=== PATIENT | male | born 1970 | race Caucasian/White ===

== ENCOUNTER 2017-12-06 15:30 | Emergency (ER) | payer OTHER, SELFPAY ==
[2017-12-06 16:05] VITALS: BP 140/80; PULSE 90; RESP 20; TEMP 36.6; O2SAT 100; BMI 25.8
--- NOTE | 2017-12-06 16:15 | HMH.EDUTC ---
[facility] [place] Disposition Clinical Impression: URI (upper respiratory infection) Qualifiers: URI type: unspecified URI Qualified Code(s): J06.9 - Acute upper respiratory infection, unspecified Disposition: Home, Self-Care Condition on Discharge: Good Instructions: DI for Nasal Congestion, DI for Sinusitis, Sinusitis Additional Instructions: Follow up with family doctor Return if needed Take medication as prescribed Motrin or Tylenol as needed for fever or pain If symptoms worsen go straight to ER Prescriptions: Azithromycin [Z-Rudi 250mg Tab] 250 mg PO UD DOSE PK #6 tab Fluticasone Propionate [Flonase 50mcg nasal spray 16gm] 2 spr NS DAILY #1 bottle predniSONE [Prednisone 20mg Tab] 20 mg PO BID #10 tab Referrals: Everardo Noel MD [Primary Care Provider] - Forms: Work/School Release Time of Disposition: 16:28 Medical Decision Making - Medical Records Medical records reviewed: Yes: I reviewed the patient's medical records. Vital Signs: 12/06/17 16:05 Temperature 97.9 F Temperature Source Temporal Artery Scan Pulse Rate [Right] 90 Respiratory Rate 20 Blood Pressure [Right Arm] 140/80 Blood Pressure Mean [Right Arm] 100 Blood Pressure Source [Right Arm] Automatic Cuff Blood Pressure Position [Right Arm] Sitting 02 Sat by Pulse Oximetry 100 Oxygen Delivery Method Room Air - Danny Inquiry Pt receiving controlled substance: No Danny was queried for this patient: No [facility] [place] HPI - General Stated complaint: light headed,cough Mode of Arrival: Ambulatory Source of Information: Patient Limitations: No Limitations Description of Symptoms (Recalled from Triage Doc. by RN): LIGHTHEADEDNESS TODAY HEENT Symptoms (Recalled from RN notes): Yes Resp Symptoms (Recalled from RN notes): No Skin Symptoms (Recalled from RN notes): No MS Symptoms (Recalled from RN notes): No Functional Status (Recalled from RN notes): N - History of Present Illness Provider Complaint: Patient state that he has been having sinus pain and pressure States that he feels like his sinuses are backed up into his ears States that if he moves quickly he feels like the fluid moves and makes him feel light headed State that he felt like he was getting sick a couple weeks ago and then he felt better and now it is back and worse than it was - Related Data Previous Rx's Medication Instructions Recorded Azithromycin [Z-Rudi 250mg Tab] 250 mg PO UD DOSE PK #6 tab 12/06/17 Fluticasone Propionate [Flonase 2 spr NS DAILY #1 bottle 12/06/17 50mcg nasal spray 16gm] predniSONE [Prednisone 20mg 20 mg PO BID #10 tab 12/06/17 Tab] Allergies Allergy/AdvReac Type Severity Reaction Status Date / Time alcohol [ALCOHOL] Allergy Unknown I-HIVES Unverified 10/19/17 15:10 MILK (FOOD) Allergy Unknown NA-NAUSEA/V Uncoded 10/19/17 15:10 OMITING - Worker's Comp Is this a Worker's Comp case?: No H History I have reviewed the patient's past medical history: Yes - *Social History Smoking Status: Current every day smoker Tobacco Type: cigarettes Alcohol Intake: never - Psychiatric History Expresses thoughts of harming self/others: None Suicide Plan Description: No Plan ROS Obtained: Yes All systems reviewed & no additional complaints - Constitutional Constitutional: Reports body ache, Reports chills - ENT Ears, Nose, Mouth, and Throat: Reports sinus pain, Reports sinus pressure, Reports sore throat Physical Exam - General General appearance: alert, in no apparent distress - Expanded ENT Exam External ear exam: Present: other (Mild fluid noted left ear) Nose exam: Present: sinus tenderness, other (Tenderness noted maxillary sinus) Comment: Throat red, irritated drainage noted no exudate - Respiratory Respiratory exam: Present: normal lung sounds bilaterally. Absent: respiratory distress - Cardiovascular Cardiovascular exam: Present: regular rate, normal rhythm. Absent: JVD - Neurological Exam Neurological e
--- NOTE | 2017-12-06 16:23 | ED_ITS ---
[facility] [place] Impression: URI (upper respiratory infection) Qualifiers: URI type: unspecified URI Qualified Code(s): J06.9 - Acute upper respiratory infection, unspecified Disposition: Home, Self-Care Condition on Discharge: Good Instructions: DI for Nasal Congestion, DI for Sinusitis, Sinusitis Additional Instructions: Follow up with family doctor Return if needed Take medication as prescribed Motrin or Tylenol as needed for fever or pain If symptoms worsen go straight to ER Prescriptions: Azithromycin [Z-Rudi 250mg Tab] 250 mg PO UD DOSE PK #6 tab Fluticasone Propionate [Flonase 50mcg nasal spray 16gm] 2 spr NS DAILY #1 bottle predniSONE [Prednisone 20mg Tab] 20 mg PO BID #10 tab Referrals: Everardo Noel MD [Primary Care Provider] - Forms: Work/School Release Time of Disposition: 16:28 Medical Decision Making - Medical Records Medical records reviewed: Yes: I reviewed the patient's medical records. Vital Signs: 12/06/17 16:05 Temperature 97.9 F Temperature Source Temporal Artery Scan Pulse Rate [Right] 90 Respiratory Rate 20 Blood Pressure [Right Arm] 140/80 Blood Pressure Mean [Right Arm] 100 Blood Pressure Source [Right Arm] Automatic Cuff Blood Pressure Position [Right Arm] Sitting 02 Sat by Pulse Oximetry 100 Oxygen Delivery Method Room Air - Danny Inquiry Pt receiving controlled substance: No Danny was queried for this patient: No [facility] [place] - General Stated complaint: light headed,cough Mode of Arrival: Ambulatory Source of Information: Patient Limitations: No Limitations Description of Symptoms (Recalled from Triage Doc. by RN): LIGHTHEADEDNESS TODAY HEENT Symptoms (Recalled from RN notes): Yes Resp Symptoms (Recalled from RN notes): No Skin Symptoms (Recalled from RN notes): No MS Symptoms (Recalled from RN notes): No Functional Status (Recalled from RN notes): N - History of Present Illness Provider Complaint: Patient state that he has been having sinus pain and pressure States that he feels like his sinuses are backed up into his ears States that if he moves quickly he feels like the fluid moves and makes him feel light headed State that he felt like he was getting sick a couple weeks ago and then he felt better and now it is back and worse than it was - Related Data Previous Rx's Medication Instructions Recorded Azithromycin [Z-Rudi 250mg Tab] 250 mg PO UD DOSE PK #6 tab 12/06/17 Fluticasone Propionate [Flonase 2 spr NS DAILY #1 bottle 12/06/17 50mcg nasal spray 16gm] predniSONE [Prednisone 20mg 20 mg PO BID #10 tab 12/06/17 Tab] Allergies Allergy/AdvReac Type Severity Reaction Status Date / Time alcohol [ALCOHOL] Allergy Unknown I-HIVES Unverified 10/19/17 15:10 MILK (FOOD) Allergy Unknown NA-NAUSEA/V Uncoded 10/19/17 15:10 OMITING - Worker's Comp Is this a Worker's Comp case?: No H History I have reviewed the patient's past medical history: Yes - *Social History Smoking Status: Current every day smoker Tobacco Type: cigarettes Alcohol Intake: never - Psychiatric History Expresses thoughts of harming self/others: None Suicide Plan Description: No Plan ROS Obtained: Yes All systems reviewed & no additional complaints - Constitutional Constitutional: Reports body ache, Reports chills - ENT Ears
[2017-12-06 16:31] VITALS: BP 140/80; PULSE 90; RESP 20; TEMP 36.6
[2017-12-06 16:31] LABS: UTC Influenza A Antigen Negative (Negative); UTC Influenza B Antigen Negative (Negative)
== END 2017-12-06 16:33 | disposition home or self-care (01) ==
PROVIDERS: Emergency Provider Nurse Practitioner; Family Provider Emergency Medicine; PCP Emergency Medicine
DX: J06.9 Acute upper respiratory infection, unspecified (principal)
CPT/HCPCS: 87804; 99201

== ENCOUNTER 2017-12-14 09:10 | Emergency (ER) | payer OTHER, SELFPAY ==
[2017-12-14 09:21] VITALS: BP 122/79; PULSE 82; RESP 20; TEMP 37.1; O2SAT 99; BMI 25.8
--- NOTE | 2017-12-14 09:28 | HMH.EDUTC ---
[facility] [place] Disposition Clinical Impression: Encounter to obtain excuse from work Frontal sinusitis Qualifiers: Chronicity: acute Recurrence: not specified as recurrent Qualified Code(s): J01.10 - Acute frontal sinusitis, unspecified Disposition: Home, Self-Care Condition on Discharge: Good Instructions: DI for Sinusitis Additional Instructions: * Start Sudafed. * Restart Flonase 2 sprays each nostril daily to help with nasal congestion, sinus and ear pressure/inflammation. If you run out, it is available generic over the counter at [facility] * Prednisone twice a day until gone * sinus rinses 1-2 times a day * Lots of fluids * Sleep elevated * Humidifier/vaporizer Referrals: Everardo Noel MD [Primary Care Provider] - (If no improvement over the next 4-6 days or at any time new or worsening symptoms, follow up. If not improving, he might want to have you see Dr. Wheeler (ENT)) Forms: Work/School Release Time of Disposition: 09:40 Medical Decision Making Vital Signs: 12/14/17 09:21 Temperature 98.7 F Temperature Source Oral Pulse Rate [Right Brachial] 82 Respiratory Rate 20 Blood Pressure [Right Arm] 122/79 Blood Pressure Mean [Right Arm] 93 Blood Pressure Source [Right Arm] Automatic Cuff Blood Pressure Position [Right Arm] Sitting 02 Sat by Pulse Oximetry 99 Oxygen Delivery Method Room Air - Danny Inquiry Pt receiving controlled substance: No [facility] [place] HPI - General Stated complaint: lightheaded congested Time Seen by Provider: 12/14/17 09:15 Mode of Arrival: Family Vehicle Source of Information: Patient Limitations: No Limitations Description of Symptoms (Recalled from Triage Doc. by RN): pt states he his light headed with head congestion. HEENT Symptoms (Recalled from RN notes): Yes (light headed and sinus congestion) Resp Symptoms (Recalled from RN notes): No Skin Symptoms (Recalled from RN notes): No MS Symptoms (Recalled from RN notes): No Functional Status (Recalled from RN notes): na - History of Present Illness Provider Complaint: c/o continued sinus pressure. Started around 12/04/17. Was seen here 12/06/17 Dx URI. Rx flonase, zpack and prednisone. Initially reports he was out of the flonase but then reports he stopped using the flonase when nasal congestion resolved. Didn't read the directions on the prednisone. Reports he has 8-9 remaining. Hasn't taken or tried anything else for symptoms. Doesn't feel like he can work today due to head pressure and requesting work excuse. - Related Data Previous Rx's Medication Instructions Recorded Azithromycin [Z-Rudi 250mg Tab] 250 mg PO UD DOSE PK #6 tab 12/06/17 Fluticasone Propionate [Flonase 2 spr NS DAILY #1 bottle 12/06/17 50mcg nasal spray 16gm] predniSONE [Prednisone 20mg 20 mg PO BID #10 tab 12/06/17 Tab] Allergies Allergy/AdvReac Type Severity Reaction Status Date / Time alcohol [ALCOHOL] Allergy Unknown I-HIVES Verified 12/14/17 09:18 - Worker's Comp Is this a Worker's Comp case?: No [facility] History I have reviewed the patient's past medical history: Yes Medical History: Denies:: Cancer, Diabetes Mellitus Type 1, Diabetes Mellitus Type 2, Hypertension, MRSA Other Surgeries: Yes: No Previous Surgery Amputation: No Fractures: No - *Social History Smoking Status: Current every day smoker Tobacco Type: cigarettes Alcohol Intake: never - Psychiatric History Expresses thoughts of harming self/others: None Suicide Plan Description: No Plan ROS Obtained: Yes Systems reviewed as appropriate & no additional complaints - Constitutional Constitutional: Denies body ache, Denies chills, Denies fatigue, Denies fever(s), Denies poor appetite - Eyes Eyes: Denies change in vision, Denies eye discharge, Denies eye pain, Denies other (eye redness) - ENT Ears, Nose, Mouth, and Throat: Reports as per HPI, Denies difficulty swallowing, Denies otalgia, Denies nasal discharge, Reports pain with swallowing (at times, mostly at night), Christian
--- NOTE | 2017-12-14 09:32 | ED_ITS ---
[facility] [place] Clinical Impression: Encounter to obtain excuse from work Frontal sinusitis Qualifiers: Chronicity: acute Recurrence: not specified as recurrent Qualified Code(s): J01.10 - Acute frontal sinusitis, unspecified Disposition: Home, Self-Care Condition on Discharge: Good Instructions: DI for Sinusitis Additional Instructions: * Start Sudafed. * Restart Flonase 2 sprays each nostril daily to help with nasal congestion, sinus and ear pressure/inflammation. If you run out, it is available generic over the counter at [facility] * Prednisone twice a day until gone * sinus rinses 1-2 times a day * Lots of fluids * Sleep elevated * Humidifier/vaporizer Referrals: Everardo Noel MD [Primary Care Provider] - (If no improvement over the next 4-6 days or at any time new or worsening symptoms, follow up. If not improving, he might want to have you see Dr. Wheeler (ENT)) Forms: Work/School Release Time of Disposition: 09:40 Medical Decision Making Vital Signs: 12/14/17 09:21 Temperature 98.7 F Temperature Source Oral Pulse Rate [Right Brachial] 82 Respiratory Rate 20 Blood Pressure [Right Arm] 122/79 Blood Pressure Mean [Right Arm] 93 Blood Pressure Source [Right Arm] Automatic Cuff Blood Pressure Position [Right Arm] Sitting 02 Sat by Pulse Oximetry 99 Oxygen Delivery Method Room Air - Danny Inquiry Pt receiving controlled substance: No [facility] [place] - General Stated complaint: lightheaded congested Time Seen by Provider: 12/14/17 09:15 Mode of Arrival: Family Vehicle Source of Information: Patient Limitations: No Limitations Description of Symptoms (Recalled from Triage Doc. by RN): pt states he his light headed with head congestion. HEENT Symptoms (Recalled from RN notes): Yes (light headed and sinus congestion) Resp Symptoms (Recalled from RN notes): No Skin Symptoms (Recalled from RN notes): No MS Symptoms (Recalled from RN notes): No Functional Status (Recalled from RN notes): na - History of Present Illness Provider Complaint: c/o continued sinus pressure. Started around 12/04/17. Was seen here 12/06/17 Dx URI. Rx flonase, zpack and prednisone. Initially reports he was out of the flonase but then reports he stopped using the flonase when nasal congestion resolved. Didn't read the directions on the prednisone. Reports he has 8-9 remaining. Hasn't taken or tried anything else for symptoms. Doesn't feel like he can work today due to head pressure and requesting work excuse. - Related Data Previous Rx's Medication Instructions Recorded Azithromycin [Z-Rudi 250mg Tab] 250 mg PO UD DOSE PK #6 tab 12/06/17 Fluticasone Propionate [Flonase 2 spr NS DAILY #1 bottle 12/06/17 50mcg nasal spray 16gm] predniSONE [Prednisone 20mg 20 mg PO BID #10 tab 12/06/17 Tab] Allergies Allergy/AdvReac Type Severity Reaction Status Date / Time alcohol [ALCOHOL] Allergy Unknown I-HIVES Verified 12/14/17 09:18 - Worker's Comp Is this a Worker's Comp case?: No [facility] History I have reviewed the patient's past medical history: Yes Medical History: Denies:: Cancer, Diabetes Mellitus Type 1, Diabetes Mellitus Type 2, Hypertension, MRSA Other Surgeries: Yes: No Previous Surgery Amputation: No Fractures: No - *Social History Smoking Status: Current every day smoker Tobacco Type: cigarettes Alcohol Intake: never
[2017-12-14 09:41] VITALS: BP 125/86; PULSE 75; RESP 18; TEMP 37; O2SAT 98
== END 2017-12-14 09:46 | disposition home or self-care (01) ==
PROVIDERS: Emergency Provider Nurse Practitioner Family; Family Provider Emergency Medicine; PCP Emergency Medicine
DX: J01.10 Acute frontal sinusitis, unspecified (principal); F17.210 Nicotine dependence, cigarettes, uncomplicated
CPT/HCPCS: 99202

== ENCOUNTER 2021-02-18 16:43 | Emergency (ER) | payer OTHER, SELFPAY ==
[2021-02-18 16:52] VITALS: BP 136/87; PULSE 75; RESP 14; TEMP 35.9; O2SAT 100; BMI 23.2
--- NOTE | 2021-02-18 17:00 | HMH.EDUTC ---
[facility] [place]ression: Gastroenteritis Diarrhea Qualifiers: Diarrhea type: unspecified type Qualified Code(s): R19.7 - Diarrhea, unspecified Disposition: Home, Self-Care Condition on Discharge: Good Instructions: Diarrhea, DI for Viral Gastroenteritis -- Adult Additional Instructions: Drink plenty of fluids. Water or gatorade (or other electrolyte sports drinks) Take tylenol for fever. Take the zofran for nausea/vomiting Follow up with your regular doctor. GO TO THE ER FOR ANY WORSENING SYMPTOMS Prescriptions: Ondansetron [Zofran 4mg ODT] 4 mg PO Q8HP PRN #12 tab.rapdis PRN Reason: Nausea Transmission Status: Received by [id number] Referrals: Anthony Abdi APRN [Primary Care Provider] - Forms: Work/School Release Time of Disposition: 17:16 Medical Decision Making - Medical Records Medical records reviewed: No: I reviewed the patient's medical records. - Danny Inquiry Pt receiving controlled substance: No Vital Signs: 02/18/21 16:52 02/18/21 17:21 Temperature 96.7 F L 96.7 F L Temperature Source Tympanic Tympanic Pulse Rate 75 Pulse Rate [Right Brachial] 75 Respiratory Rate 14 14 Blood Pressure 136/87 Blood Pressure [Right Arm] 136/87 Blood Pressure Mean [Right Arm] 103 Blood Pressure Source Automatic Cuff Blood Pressure Source [Right Arm] Automatic Cuff Blood Pressure Position Sitting Blood Pressure Position [Right Arm] Sitting 02 Sat by Pulse Oximetry 100 Oxygen Delivery Method Room Air Room Air [facility] [place] - General Stated complaint: diarrhea Time Seen by Provider: 02/18/21 17:00 Mode of Arrival: Ambulatory Source of Information: Patient Limitations: No Limitations Description of Symptoms (Recalled from Triage Doc. by RN): Pt complains of upset stomach, cramps and diarrhea since wednesday HEENT Symptoms (Recalled from RN notes): No Resp Symptoms (Recalled from RN notes): No Skin Symptoms (Recalled from RN notes): No MS Symptoms (Recalled from RN notes): No Functional Status (Recalled from RN notes): wnl - History of Present Illness Provider Complaint: He states that he has had diarrhea for the past 4 days. At first he had n/v also, but that has stopped. He denies any abdominal pain other than some cramping at times. He denies any fever/chills. - Related Data Previous Rx's Medication Instructions Recorded peg 3350-electrolytes 236 240 ml PO Q10M #4000 ml 01/16/20 gram-22.74 gram-6.74 gram-5.86 gram solution Ondansetron [Zofran 4mg ODT] 4 mg PO Q8HP PRN #12 tab.rapdis 02/18/21 Allergies Allergy/AdvReac Type Severity Reaction Status Date / Time alcohol [ALCOHOL] Allergy Unknown I-HIVES Verified 01/16/20 09:19 - Worker's Comp Is this a Worker's Comp case?: No [facility] History - Hepatitis A Screen Drug use history?: No High risk sexual behaviors?: No History of sexually transmitted infection?: No Currently employed?: No Childcare worker?: No Do you have indoor plumbing?: Yes Do you have electricity?: Yes Attestation statement:: This patient has been screened for Hepatitis A risk factors. I have reviewed the patient's past medical history: Yes Medical History: Denies:: Cancer, Diabetes Mellitus Type 1, Diabetes Mellitus Type 2, Hypertension, MRSA Other Surgeries: Yes: No Previous Surgery Amputation: No Fractures: No - Social History Smoking Status: Current every day smoker Tobacco Type: cigarettes # Packs/Day (cigarettes): 1 Alcohol Intake: never Occupational Status: other ROS Obtained: Yes All systems reviewed & no additional complaints - Constitutional Constitutional: Denies chills, Denies fever(s) - ENT Ears, Nose, Mouth, and Throat: Denies dizziness, Denies otalgia, Denies sore throat - Cardiovascular Cardiovascular: Denies chest pain - Respiratory Respiratory: Denies chest congestion, Denies cough - Gastrointestinal Gastrointestingal: Reports: as per HPI - Genitourinary Ma
[2021-02-18 17:21] VITALS: BP 136/87; PULSE 75; RESP 14; TEMP 35.9; O2SAT 100
== END 2021-02-18 17:22 | disposition home or self-care (01) ==
PROVIDERS: Emergency Provider Nurse Practitioner Family; PCP Nurse Practitioner Family
DX: K52.9 Noninfective gastroenteritis and colitis, unspecified (principal)
CPT/HCPCS: 99202; G0463

== ENCOUNTER 2021-06-30 14:16 | Emergency (ER) | payer OTHER, SELFPAY ==
[2021-06-30 16:15] VITALS: BP 00/00; PULSE 0; RESP 0; TEMP -17.7; TEMP 0
== END 2021-06-30 16:17 | disposition left against medical advice (07) ==
PROVIDERS: Emergency Provider Nurse Practitioner; PCP Nurse Practitioner Family
DX: Z53.21 Procedure and treatment not carried out due to patient leaving prior to being seen by health care provider (principal)

== ENCOUNTER → 2021-07-01 21:52 | Outpatient (CLI) | payer OTHER, SELFPAY | PROVIDERS: Visit Provider Nurse Practitioner Family | DX: Z11.52 Encounter for screening for COVID-19 (principal) | CPT/HCPCS: U0003 ==

== ENCOUNTER 2022-01-14 15:07 | Emergency (ER) | payer OTHER, SELFPAY ==
[2022-01-14 15:08] VITALS: BP 155/87; PULSE 69; RESP 16; TEMP 36.6; O2SAT 97; BMI 22.3
--- NOTE | 2022-01-14 15:13 | HMH.EDGENADL ---
ED Disposition Clinical Impression: Spring's palsy Disposition: Home, Self-Care Condition on Discharge: Good Instructions: DI for Roann Palsy Additional Instructions: Prednisone and Valtrex as prescribed Artificial tears every hour while awake Ophthalmic ointment at night Eyelid should be taped shut at night if you are not able to close your eye Protective glasses or goggles to protect from sunshine and wind Follow-up with your primary care provider within 1 week. Prescriptions: predniSONE [Prednisone 20mg Tab] 60 mg PO DAILY #21 tab Transmission Status: [facility] Valacyclovir HCl [Valacyclovir] 1,000 mg PO TID #21 tab Transmission Status: [facility] Referrals: Provider,Referral, [Referring] - - Critical Care Critical Care Time: No Attestation: On 01/14/22, the high probability of a clinically significant, sudden or life threatening deterioration of the following system(s) required my full and direct attention, intervention and personal management. The time I documented below is in addition to time spent performing reported procedures but includes the following listed in this critical care notation. Medical Decision Making - Danny Inquiry Pt receiving controlled substance: No Vital Signs: 01/14/22 15:08 Temperature 97.9 F Temperature Source Oral Pulse Rate [Left Radial] 69 Respiratory Rate 16 Blood Pressure [Right Arm] 155/87 H Blood Pressure Mean [Right Arm] 109 Blood Pressure Source [Right Arm] Automatic Cuff Blood Pressure Position [Right Arm] Sitting 02 Sat by Pulse Oximetry 97 Oxygen Delivery Method Room Air - Lab Data Lab Results 01/14/22 15:35: WBC 7.1, RBC 4.48 L, Hgb 14.2, Hct 43.6, MCV 97.4 H, MCH 31.8 H, MCHC 32.6, RDW 13.5, Plt Count 289, MPV 7.5, Neut % (Auto) 46.4, Lymph % (Auto) 42.5, [place] % (Auto) 6.9, Eos % (Auto) 2.9, Baso % (Auto) 1.2, Neut # (Auto) 3.3, Lymph # (Auto) 3.0, [place] # (Auto) 0.5, Eos # (Auto) 0.2, Baso # (Auto) 0.1 01/14/22 15:35: Sodium 140, Potassium 4.4, Chloride 106, Carbon Dioxide 28, Anion Gap 10.4, BUN 10, Creatinine 0.70, Estimated Creat Clear 130, Estimated GFR 119, Est GFR ( Amer) 144, Glucose 94, Calcium 8.6, Total Bilirubin 0.3, AST 21, ALT 16, Alkaline Phosphatase 60, Total Protein 7.0, Albumin 4.3, Globulin 2.7, Albumin/Globulin Ratio 1.6 Result diagrams: 01/14/22 15:35 01/14/22 15:35 Orders (Tests/Meds): ED MEDICATIONS Discontinued Medications Generic Name Dose Route Start Last Admin Trade Name Freq PRN Reason Stop Dose Admin Methylprednisolone Sodium Succinate 125 mg 01/14/22 16:15 01/14/22 16:37 Methylprednisolone Sod Succ 125mg Vial IV 01/14/22 16:16 125 mg ONCE ONE Administration - CT Data CT Scan: Head Time Received: 16:[address] Reviewed: Yes: I have viewed the radiologist's interpretation Findings Narrative: Procedure(s): CT head/brain wo con Accession Number(s): [id number] cc: Everardo Noel MD; Louis Singh MD; Chavo Tenorio MD~ FINAL REPORT CLINICAL HISTORY: left face feels numb started yesterday FINDINGS: Axial images of the head were obtained without contrast. Coronal reformatted images were also obtained.This study was performed with techniques to keep radiation doses as low as reasonably achievable (ALARA). Individualized dose reduction techniques using automated exposure control or adjustment of mA and/or kV according to the patient's size were employed. There is no evidence of intracranial hemorrhage or mass. The ventricular size is within normal limits. There is no evidence of shift of the midline structures. No abnormal extra axial fluid collection is identified. There is a small retention cyst or polyp in the right maxillary sinus. No skull abnormality is seen on the bone window images. IMPRESSION: No acute intracranial abnormality. Reviewed, Interpreted and Dictated by Louis Singh III, MD Transcribed
--- NOTE | 2022-01-14 15:14 | PC.NURSE ---
ED MD at
--- NOTE | 2022-01-14 15:21 | CT_ITS ---
FINAL REPORT CLINICAL HISTORY: left face feels numb started yesterday FINDINGS: Axial images of the head were obtained without contrast. Coronal reformatted images were also obtained.This study was performed with techniques to keep radiation doses as low as reasonably achievable (ALARA). Individualized dose reduction techniques using automated exposure control or adjustment of mA and/or kV according to the patient's size were employed. There is no evidence of intracranial hemorrhage or mass. The ventricular size is within normal limits. There is no evidence of shift of the midline structures. No abnormal extra axial fluid collection is identified. There is a small retention cyst or polyp in the right maxillary sinus. No skull abnormality is seen on the bone window images. IMPRESSION: No acute intracranial abnormality. Reviewed, Interpreted and Dictated by Louis Singh III, MD Transcribed by Ricardo Peralta Authenticated by Louis Singh III, MD on 01/14/2022 03:57:13 PM [facility]
[2022-01-14 15:49] LABS: Basophils # 0.1 K/mm3 (0-0.2); Basophils % 1.2 % (0.1-2.0); Eosinophils # 0.2 K/mm3 (0.0-0.4); Eosinophils % 2.9 % (0.1-12.0); Hematocrit 43.6 % (42.0-52.0); Hemoglobin 14.2 g/dL (14.1-18.0); Lymphocytes % 42.5 % (10-50); Mean Corpuscular HGB Conc 32.6 g/dL (31.8-35.4); Mean Corpuscular Hemoglobin 31.8 pg (27.0-31.2); Mean Corpuscular Volume 97.4 fl (80-94); Mean Platelet Volume 7.5 fl (7.4-10.4); Monocytes # 0.5 K/mm3 (0.1-1.0); Monocytes % 6.9 % (1.7-9.3); Neutrophils # 3.3 K/mm3 (1.8-7.8); Neutrophils % 46.4 % (37.0-80.0); Platelet Count 289 K/mm3 (142-424); Red Blood Count 4.48 M/mm3 (4.60-6.20); Red Cell Distribution Width 13.5 % (11.5-17.5); White Blood Count 7.1 K/mm3 (4.8-10.8)
[2022-01-14 16:03] LABS: Chloride 106 mmol/L (98-107); Potassium 4.4 mmoL/L (3.5-5.1); Sodium 140 mmol/L (136-145)
[2022-01-14 16:05] LABS: Blood Urea Nitrogen 10 mg/dl (9-20); Creatinine Clearance Estimated 130 mL/min (50-200); Estimated Glomerular Filt Rate 119 ml/min (>60); GFR (African American) 144 ML/MIN (>60)
[2022-01-14 16:06] LABS: Alanine Aminotransferase 16 U/L (12-78); Albumin Level 4.3 g/dl (3.5-5.0); Albumin/Globulin Ratio 1.6 (1.1-1.8); Alkaline Phosphatase 60 U/L (38-126); Anion Gap 10.4 mEq/L (5-15); Aspartate Amino Transferase 21 U/L (17-59); Bilirubin,Total 0.3 mg/dl (0.2-1.3); Calcium 8.6 mg/dl (8.4-10.2); Carbon Dioxide 28 mmol/L (22.0-30.0); Globulin 2.7 g/dL (1.3-3.2); Glucose 94 mg/dl (74-100)
--- NOTE | 2022-01-14 16:09 | PC.NURSE ---
ED MD at for update on POC
[2022-01-14 17:29] VITALS: BP 147/78; PULSE 67; RESP 18; TEMP 36.6; O2SAT 97
== END 2022-01-14 17:30 | disposition home or self-care (01) ==
PROVIDERS: Emergency Provider Emergency Medicine; PCP Emergency Medicine
DX: G51.0 Bell's palsy (principal); F17.210 Nicotine dependence, cigarettes, uncomplicated
CPT/HCPCS: 70450; 80053; 85025; 96374; 99284

== ENCOUNTER 2022-05-26 20:41 | Emergency (ER) | payer OTHER, SELFPAY ==
[2022-05-26 20:55] VITALS: BP 132/60; PULSE 66; RESP 16; TEMP 36.9; O2SAT 99; BMI 20.9
--- NOTE | 2022-05-26 21:08 | CT_ITS ---
PROCEDURE INFORMATION: Exam: CT Lumbar Spine Without Contrast Exam date and time: 05/26/2022 9:36 PM Age: 51 years old Clinical indication: Low back pain TECHNIQUE: Imaging protocol: Computed tomography of the lumbar spine without contrast. Radiation optimization: All CT scans at this facility use at least one of these dose optimization techniques: automated exposure control; mA and/or kV adjustment per patient size (includes targeted exams where dose is matched to clinical indication); or iterative reconstruction. COMPARISON: CT ABDOMEN PELVIS W CON 12/21/2019 6:07 PM FINDINGS: Bones/joints: No acute fracture. Normal alignment. L1-L2: No significant disc protrusion. No severe spinal canal stenosis. No significant neural foraminal narrowing. L2-L3: No significant disc protrusion. No severe spinal canal stenosis. No significant neural foraminal narrowing. L3-L4: No significant disc protrusion. No severe spinal canal stenosis. No significant neural foraminal narrowing. L4-L5: Bulging annulus. No severe spinal canal stenosis. No significant neural foraminal narrowing. L5-S1: Bulging annulus. No severe spinal canal stenosis. No significant neural foraminal narrowing. Soft tissues: Left renal vascular calcifications. IMPRESSION: 1. No acute fractures or listhesis. 2. No evidence of severe canal or foraminal stenosis.
--- NOTE | 2022-05-26 21:08 | XR_ITS ---
PROCEDURE INFORMATION: Exam: XR Bilateral Hips Exam date and time: 05/26/2022 9:23 PM Age: 51 years old Clinical indication: Hip pain; Bilateral; Additional info: Pain hip/groin, nki TECHNIQUE: Imaging protocol: Radiologic exam of the bilateral hips. Views: 2 views of hips with pelvis when performed. COMPARISON: CT ABDOMEN PELVIS W CON 12/21/2019 6:07 PM FINDINGS: Bones/joints: Intact. No acute fractures or dislocations identified. There are no lytic or blastic lesions. Mild decrease in the hip joint spaces on a degenerative basis. Soft tissues: Unremarkable. IMPRESSION: 1. No acute fractures or dislocations. 2. Mild decrease in the hip joint spaces on a degenerative basis.
[2022-05-26 21:34] LABS: Basophils # 0.1 K/mm3 (0-0.2); Eosinophils # 0.3 K/mm3 (0.0-0.4); Eosinophils % 3.7 % (0.1-12.0); Hematocrit 41.4 % (42.0-52.0); Hemoglobin 13.9 g/dL (14.1-18.0); Lymphocytes # 3.1 K/mm3 (0.7-4.5); Lymphocytes % 33.5 % (10-50); Mean Corpuscular HGB Conc 33.7 g/dL (31.8-35.4); Mean Corpuscular Hemoglobin 32.1 pg (27.0-31.2); Mean Corpuscular Volume 95.4 fl (80-94); Monocytes # 0.7 K/mm3 (0.1-1.0); Monocytes % 7.7 % (1.7-9.3); Neutrophils % 54.1 % (37.0-80.0); Platelet Count 361 K/mm3 (142-424); Red Blood Count 4.33 M/mm3 (4.60-6.20); Red Cell Distribution Width 12.7 % (11.5-17.5); White Blood Count 9.2 K/mm3 (4.8-10.8)
[2022-05-26 21:37] LABS: Chloride 107 mmol/L (98-107); Potassium 3.5 mmoL/L (3.5-5.1); Sodium 142 mmol/L (136-145)
[2022-05-26 21:39] LABS: Blood Urea Nitrogen 11 mg/dl (9-20); Creatinine Clearance Estimated 118 mL/min (50-200); Estimated Glomerular Filt Rate 119 ml/min (>60); GFR (African American) 144 ML/MIN (>60)
[2022-05-26 21:40] LABS: Alanine Aminotransferase 15 U/L (12-78); Albumin/Globulin Ratio 1.3 (1.1-1.8); Alkaline Phosphatase 83 U/L (38-126); Anion Gap 9.5 mEq/L (5-15); Aspartate Amino Transferase 22 U/L (17-59); Bilirubin,Total 0.2 mg/dl (0.2-1.3); Calcium 9.1 mg/dl (8.4-10.2); Carbon Dioxide 29 mmol/L (22.0-30.0); Glucose 110 mg/dl (74-100)
[2022-05-26 21:46] LABS: C-Reactive Protein 10.1 mg/L (0-4)
[2022-05-26 22:05] LABS: Erythrocyte Sedimentation Rate 15 mm/hr (0-15)
[2022-05-26 22:06] VITALS: PULSE 123; RESP 16; TEMP 36.8; O2SAT 100
--- NOTE | 2022-05-26 22:07 | PC.NURSE ---
ALERT, ORIENTED, SKIN WARM AND DRY TO TOUCH, RESP EVEN AND UNLABORED. MEDICATED WITH TORADOL FOR PAIN. NO C/O VOICED AT THIS TIME.
--- NOTE | 2022-05-26 23:03 | HMH.EDGENADL ---
ED Disposition Clinical Impression: Tendonitis Disposition: Home, Self-Care Condition on Discharge: Good Instructions: DI for Tendinitis Additional Instructions: use meds and see pcp for follow up and possible mri Prescriptions: predniSONE [Prednisone 20mg Tab] 20 mg PO BID #10 tab Transmission Status: Pending to [id number] Referrals: Everardo Noel MD [Primary Care Provider] - - Critical Care Critical Care Time: No Attestation: On 05/26/22, the high probability of a clinically significant, sudden or life threatening deterioration of the following system(s) required my full and direct attention, intervention and personal management. The time I documented below is in addition to time spent performing reported procedures but includes the following listed in this critical care notation. Medical Decision Making - Medical Records Medical records reviewed: Yes: I reviewed the patient's medical records. - Danny Inquiry Pt receiving controlled substance: No Vital Signs: 05/26/22 20:55 05/26/22 22:06 Temperature 98.5 F 98.2 F Temperature Source Oral Oral Pulse Rate 123 H Pulse Rate [Right Brachial] 66 Respiratory Rate 16 16 Blood Pressure [Right Arm] 132/60 Blood Pressure Mean [Right Arm] 84 Blood Pressure Source [Right Arm] Automatic Cuff Blood Pressure Position [Right Arm] Sitting 02 Sat by Pulse Oximetry 99 100 Oxygen Delivery Method Room Air Room Air - Lab Data Lab results reviewed: Yes: I reviewed the patient's lab results. Lab Results 05/26/22 21:25: WBC 9.2, RBC 4.33 L, Hgb 13.9 L, Hct 41.4 L, MCV 95.4 H, MCH 32.1 H, MCHC 33.7, RDW 12.7, Plt Count 361, MPV 7.0 L, Neut % (Auto) 54.1, Lymph % (Auto) 33.5, [place] % (Auto) 7.7, Eos % (Auto) 3.7, Baso % (Auto) 1.0, Neut # (Auto) 5.0, Lymph # (Auto) 3.1, [place] # (Auto) 0.7, Eos # (Auto) 0.3, Baso # (Auto) 0.1 05/26/22 21:25: ESR 15 05/26/22 21:25: Sodium 142, Potassium 3.5, Chloride 107, Carbon Dioxide 29, Anion Gap 9.5, BUN 11, Creatinine 0.70, Estimated Creat Clear 118, Estimated GFR 119, Est GFR ( Amer) 144, Glucose 110 H, Calcium 9.1, Total Bilirubin 0.2, AST 22, ALT 15, Alkaline Phosphatase 83, C-Reactive Protein 10.1 H, Total Protein 7.0, Albumin 4.0, Globulin 3.0, Albumin/Globulin Ratio 1.3 05/26/22 21:25: Procalcitonin 0.040 Result diagrams: 05/26/22 21:25 05/26/22 21:25 Orders (Tests/Meds): ED MEDICATIONS Generic Name Dose Route Start Last Admin Trade Name Freq PRN Reason Stop Dose Admin Sodium Chloride 1,000 mls @ 999 mls/hr 05/26/22 21:15 05/26/22 21:25 Sod Chlor 0.9% 1000ml Bag IV 05/26/22 22:15 999 mls/hr .Q1H1M FRED Administration Discontinued Medications Generic Name Dose Route Start Last Admin Trade Name Freq PRN Reason Stop Dose Admin Iopamidol 75 ml 05/26/22 23:21 05/26/22 23:22 Iopamidol-370 (76%);100ml Bottle IV 05/26/22 23:22 75 ml ONCE ONE Administration Ketorolac Tromethamine 30 mg 05/26/22 22:02 05/26/22 22:03 Ketorolac 30mg/Ml Vial IV 05/26/22 22:03 30 mg ONCE ONE Administration Methylprednisolone Sodium Succinate 125 mg 05/26/22 21:12 05/26/22 21:25 Methylprednisolone Sod Succ 125mg Vial IV 05/26/22 21:13 125 mg ONCE ONE Administration Sodium Chloride 10 ml 05/26/22 23:21 05/26/22 23:22 Sodium Chloride 0.9% 10ml Syr (Rad Only) IV 05/26/22 23:22 10 ml ONCE ONE Administration - Radiology Data #1 Image(s): Pelvis Image Reviewed: Yes I have reviewed radiologist's interpretation Preliminary Findings: No Fracture Seen - CT Data CT Scan: Abdomen, Pelvis, L-Spine Time Received: 23:59 Medical Decision Narrative: has tendon prob injury based on ct and exam General Adult HPI - General Chief complaint: PAIN Stated complaint: HIP PAIN Time Seen by Provider: 05/26/22 23:03 Mode of Arrival: Ambulatory Source of Information: Patient, Medical Record Limitations: No Limitations Description of Symptoms (Recalled fr
--- NOTE | 2022-05-26 23:05 | CT_ITS ---
PROCEDURE INFORMATION: Exam: CT Abdomen And Pelvis With Contrast Exam date and time: 05/26/2022 11:11 PM Age: 51 years old Clinical indication: Pain; Other: Inguinal; Additional info: Inguinal pain TECHNIQUE: Imaging protocol: Computed tomography of the abdomen and pelvis with contrast. Radiation optimization: All CT scans at this facility use at least one of these dose optimization techniques: automated exposure control; mA and/or kV adjustment per patient size (includes targeted exams where dose is matched to clinical indication); or iterative reconstruction. Contrast material: ISOVUE; Contrast volume: 75 ml; Contrast route: IV; COMPARISON: CT ABDOMEN PELVIS W CON 12/21/2019 6:07 PM FINDINGS: Lungs: Lung bases are free of consolidation effusions pneumothorax or pulmonary nodules. Liver: The liver is of normal size with no evidence of intrahepatic biliary dilatation or focal lesions. Gallbladder and bile ducts: There is no evidence of cholelithiasis gallbladder wall thickening or pericholecystic fluid. No ductal dilation identified. Pancreas: No focal lesions, inflammatory changes or ductal dilatation. Spleen: Intact with no focal lesions. No splenomegaly. Adrenal glands: Normal. No mass. Kidneys and ureters: No hydronephrosis or nephrolithiasis. 2 cm simple cyst in the right kidney, benign. No follow-up necessary. Stomach and bowel: Unremarkable. No obstruction. No mucosal thickening. Appendix: No evidence of appendicitis. Intraperitoneal space: Unremarkable. No free air. No significant fluid collection. Vasculature: Unremarkable. No abdominal aortic aneurysm. Lymph nodes: Unremarkable. No enlarged lymph nodes. Urinary bladder: Unremarkable as visualized. Reproductive: Unremarkable as visualized. Bones/joints: Unremarkable. No acute fracture. Soft tissues: Area of enlargement and hypodensity within the right psoas tendon measuring 5 cm in length by 2 cm in with, compatible with edema. IMPRESSION: 1. Area of enlargement and hypodensity within the right Psoas Tendon measuring 5 cm in length by 2 cm in width, compatible with edema, suggestive of tendinous injury. Clinical correlation with the patient's site of pain. Non emergent MRI could be considered for further evaluation if clinically warranted. 2. No acute abnormalities of the abdominal or pelvic viscera. COMMENTS: Consistent with the [employer]'s Incidental Findings Committee white paper (J Am Gibson Radiol 2018): Any incidental renal lesion less than 1 cm or classified as too small to characterize, or any incidental cystic renal lesion characterized as simple-appearing, is likely benign. No follow-up imaging is recommended for these lesions per consensus recommendations based on imaging criteria.
[2022-05-27 00:03] VITALS: BP 123/72; PULSE 78; RESP 16; TEMP 37.1; O2SAT 98
== END 2022-05-27 00:07 | disposition home or self-care (01) ==
PROVIDERS: Emergency Provider Emergency Medicine; PCP Emergency Medicine
DX: M76.9 Unspecified enthesopathy, lower limb, excluding foot (principal); F17.210 Nicotine dependence, cigarettes, uncomplicated; Z79.52 Long term (current) use of systemic steroids; Z82.49 Family history of ischemic heart disease and other diseases of the circulatory system; Z83.3 Family history of diabetes mellitus; Z80.9 Family history of malignant neoplasm, unspecified
CPT/HCPCS: 72131; 73521; 74177; 80053; 84145; 85025; 85651; 86140; 96361; 96374; 96375; 99285; Q9967

== ENCOUNTER → 2022-08-21 10:35 | Outpatient (CLI) | payer OTHER, SELFPAY ==
[2022-08-21 11:43] LABS: Erythrocyte Sedimentation Rate 1 mm/hr (0-15)
[2022-08-21 11:45] LABS: Basophils # 0.1 K/mm3 (0-0.2); Basophils % 1.3 % (0.1-2.0); Eosinophils # 0.3 K/mm3 (0.0-0.4); Eosinophils % 3.5 % (0.1-12.0); Hematocrit 46.2 % (42.0-52.0); Lymphocytes # 3.3 K/mm3 (0.7-4.5); Lymphocytes % 40.2 % (10-50); Mean Corpuscular HGB Conc 32.4 g/dL (31.8-35.4); Mean Corpuscular Hemoglobin 31.9 pg (27.0-31.2); Mean Corpuscular Volume 98.6 fl (80-94); Mean Platelet Volume 7.6 fl (7.4-10.4); Monocytes # 0.7 K/mm3 (0.1-1.0); Monocytes % 8.7 % (1.7-9.3); Neutrophils # 3.8 K/mm3 (1.8-7.8); Neutrophils % 46.3 % (37.0-80.0); Platelet Count 342 K/mm3 (142-424); Red Blood Count 4.69 M/mm3 (4.60-6.20); Red Cell Distribution Width 13.8 % (11.5-17.5); White Blood Count 8.2 K/mm3 (4.8-10.8)
[2022-08-21 11:55] LABS: Chloride 103 mmol/L (98-107); Sodium 142 mmol/L (136-145)
[2022-08-21 11:56] LABS: Potassium 4.1 mmoL/L (3.5-5.1)
[2022-08-21 11:59] LABS: Anion Gap 13.1 mEq/L (5-15); Blood Urea Nitrogen 12 mg/dl (9-20); Carbon Dioxide 30 mmol/L (22.0-30.0); Chol/HDL Ratio 4.5 (1-3.5); Cholesterol 198 mg/dl (140-200); Estimated Glomerular Filt Rate 119 ml/min (>60); GFR (African American) 144 ML/MIN (>60); Glucose 123 mg/dl (74-100); HDL Cholesterol 44 mg/dl (40-60); Triglycerides 203 mg/dl (30-150); VLDL Cholesterol 41 mg/dL (0-40)
[2022-08-21 12:04] LABS: C-Reactive Protein 1.9 mg/L (0-4)
[2022-08-21 12:10] LABS: Direct LDL Cholesterol 123.69 mg/dL (100-129)
[2022-08-25 16:38] LABS: Antinuclear Antibodies, IFA Negative (.)
== END ==
PROVIDERS: PCP Emergency Medicine; Visit Provider Family Medicine Addiction Medicine
DX: H46.9 Unspecified optic neuritis (principal)
CPT/HCPCS: 36415; 80048; 80061; 85025; 85651; 86038; 86140

== ENCOUNTER → 2022-08-26 08:40 | Outpatient (CLI) | payer OTHER, SELFPAY ==
--- NOTE | 2022-08-26 08:49 | MR_ITS ---
FINAL REPORT CLINICAL HISTORY: OPTIC NERVE EDEMA. 3 weeks ago. loss of vision out of right eye. dizziness. 14ml prohance. FINDINGS: Multiplanar MR imaging of the brain was performed without and with contrast. There is no evidence of intracranial hemorrhage or mass. There is a single small focus of increased signal in the left frontal white matter which is nonspecific, may represent mild chronic ischemic/gliotic change but a focus of demyelination is not excluded. No abnormal extra-axial fluid collection is seen. The ventricular size is within normal limits. There is no evidence of shift of the midline structures. The posterior fossa and brainstem have an unremarkable appearance. No area of abnormal restricted diffusion is identified. No abnormal contrast enhancement is seen. Normal major vessel vascular flow voids are noted. IMPRESSION: Single focus of increased signal in the left frontal white matter, may represent mild chronic ischemic/gliotic change but a focus of demyelination is not excluded. Reviewed, Interpreted and Dictated by Louis Singh III, MD Transcribed by Ernestine Munoz Authenticated and . [facility]
--- NOTE | 2022-08-26 09:03 | XR_ITS ---
FINAL REPORT CLINICAL HISTORY: RULE OUT METAL FOREIGN BODY FOR MRI. PATIENT HAS PRIOR HX WELDING [address] DONE 12/2021 AND ARTIFACT SEEN OVER LEFT EYE. COMPARISON: CT dated December 2021 FINDINGS: ORBITS Look up and look down views were obtained. No fracture is identified. The sinuses are clear. Wall there is a punctate 1 mm radiodensity in the left supraorbital region. This is external to the orbit and localizes in the left upper eyelid on the prior CT. Small foreign body versus calcification. IMPRESSION: No intraorbital foreign body. Reviewed, Interpreted and Dictated by Louis Singh III, MD Transcribed by Ricardo Peralta Authenticated and . [facility]
== END ==
PROVIDERS: PCP Emergency Medicine; Visit Provider Family Medicine Addiction Medicine
DX: H46.9 Unspecified optic neuritis (principal); H05.53 Retained (old) foreign body following penetrating wound of bilateral orbits
CPT/HCPCS: 70200; 70553; A9576

== ENCOUNTER → 2022-09-03 12:37 | Outpatient (CLI) | payer OTHER, SELFPAY ==
--- NOTE | 2022-09-03 12:38 | CA_ITS ---
FINAL REPORT TECHNIQUE: Color Doppler, duplex Doppler and matos scale sonography of the bilateral neck arterial vasculature was performed. Velocities were measured in the carotid arteries. Stenosis evaluation based on the validated velocity criteria. 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 Hx-stroke, Smoker FINDINGS: The peak systolic velocity of the right common carotid artery is 106 cm/s. The peak systolic velocity of the right internal carotid artery is 100 cm/s and end diastolic velocity 43 cm/s. The ICA/CCA ratio is 0.94. A mild amount of plaque is present. The right external carotid artery is patent. The right vertebral artery is patent with antegrade flow. The peak systolic velocity of the left common carotid artery is 91 cm/s. The peak systolic velocity of the left internal carotid artery is 87 cm/s and end diastolic velocity 39 cm/s. The ICA/CCA ratio is 0.96. A mild amount of plaque is present. The left external carotid artery is patent.The left vertebral artery is patent with antegrade flow. In addition, an incidental note is made of a 2.6 cm solid isoechoic right thyroid mass, TI-RADS 3. IMPRESSION: Less than 50% bilateral carotid stenosis. Bilateral patent vertebral arteries with antegrade flow. 2.6 cm right thyroid mass as above. Consider ultrasound-guided biopsy of this dominant lesion. Reviewed, Interpreted and Dictated by Louis Singh III, MD Transcribed by Maggie Palma Authenticated and [facility]
== END ==
PROVIDERS: PCP Emergency Medicine; Visit Provider Emergency Medicine
DX: G51.0 Bell's palsy (principal); H54.7 Unspecified visual loss
CPT/HCPCS: 93880

== ENCOUNTER → 2022-09-21 08:24 | Outpatient (CLI) | payer OTHER, SELFPAY ==
--- NOTE | 2022-09-21 08:24 | US_ITS ---
FINAL REPORT CLINICAL HISTORY: mass on RT thyroid, fna rt thyroid, richa ABEBE FINDINGS: ULTRASOUND GUIDED RIGHT THYROID BIOPSY HISTORY: Right thyroid nodule/mass. TECHNIQUE: Informed consent was obtained from the patient. Timeout procedure was performed prior to beginning. Limited sonographic evaluation of thyroid gland was performed to localize lesion of interest in the right thyroid. The neck was prepped in a routine sterile fashion and locally anesthetized with 1% lidocaine. FNA was performed with 25-gauge needle under direct sonographic visualization. 4 passes were made. Cytology is pending. Procedure was well tolerated. CONCLUSION: 1. Technically successful right thyroid fine needle aspiration. Reviewed, Interpreted and Dictated by Louis Singh III, MD Transcribed by Jory Benitez PA-C Authenticated and [facility]
--- NOTE | 2022-09-21 08:24 | US_ITS ---
FINAL REPORT TECHNIQUE: Ultrasound images of the thyroid were obtained. CLINICAL HISTORY: Mass on right Thyroid FINDINGS: The right lobe of the thyroid measures 4.98 cm. It is normal in echogenicity. The left lobe of the thyroid measures 4.56 cm. It is normal in echogenicity. There is a 2.4 cm solid, right thyroid lobe mass. IMPRESSION: 2.4 cm, solid right thyroid lobe mass. Reviewed, Interpreted and Dictated by Louis Singh III, MD Transcribed by Jenae Herring Authenticated and [facility]
== END ==
PROVIDERS: PCP Emergency Medicine; Visit Provider Emergency Medicine
DX: E04.1 Nontoxic single thyroid nodule (principal); E07.9 Disorder of thyroid, unspecified
CPT/HCPCS: 10005; 76536; 76942

== ENCOUNTER 2023-05-30 22:34 | Emergency (ER) | payer OTHER, SELFPAY ==
[2023-05-30 22:41] VITALS: BP 140/86; PULSE 82; RESP 18; O2SAT 98; BMI 22.9
--- NOTE | 2023-05-30 22:54 | ED_ITS ---
Discharge Plan Disposition Chief Complaint: PAIN Prescriptions Prescriptions: No Action peg 3350-electrolytes [Golytely] 236-22.74-6.74 -5.86 gram recon soln 240 ml PO Q10M Qty: 240 0RF Rx Instructions: until fecal effluent is clear-follow mailed instructions Referrals Follow up/Referrals: Everardo Noel MD [Primary Care Provider] - See instructions Discharge ED Provider: Nidhi Villanueva General Adult HPI General Chief complaint: PAIN Stated complaint: AO 05/27@home injure L Shoulder Mode of Arrival: Family Vehicle Source of Information: Patient Limitations: No Limitations Description of Symptoms (Recalled from ER Triage Doc. by RN): 52 YO MALE PRESENTS WITH CC OF LEFT ANTERIOR CHEST WALL PAIN FOLLOWING LIFTING ON A ZERO- TURN MOWER 2 DAYS AGO. STATES HE KNOWS HOW TO LIFT ON THEM BECAUSE I WORK ON THEM ALL THE TIME, AND I KNOW I DID IT WRONG . HAS ATTEMPTED TO USE HEAT/ICE/MENTHOLATED RUB/OTC MEDS WITHOUT RELIEF. Related Data Previous Rx's Medication Instructions Recorded peg 3350-electrolytes 236 240 ml PO Q10M #240 mL 09/03/22 gram-22.74 gram-6.74 gram-5.86 gram solution (Golytely) Allergies Allergy/AdvReac Type Severity Reaction Status Date / Time alcohol [ALCOHOL] Allergy Unknown I-HIVES Verified 08/28/22 08:43 [facility] Disclaimer: The information contained in this section may have been updated after the patient was seen, as this information can be updated by other users. Medical History (Updated 09/03/22 @ 12:34 by Elen Holliday RN) Hx of Spring's palsy Family History (Updated 09/03/22 @ 12:34 by Elen Holliday RN) Other Family history of cancer Family history of myocardial infarction Family history of stroke Social History (Updated 09/03/22 @ 12:34 by Elen Holliday RN) Smoking Status: Current every day smoker tobacco type: cigarettes packs per day: 1 alcohol intake: never substance use type: denies use current occupational status: employed Travel in the last 8 weeks: None housing: house lives independently: Yes marital status: single special jabier needs: No agree to transfusion: No do you feel safe at home: Yes victim of physical abuse: No victim of emotional abuse: No victim of sexual abuse: No would you like helpful sources: No Medical Decision Making Vital Signs: 05/30/23 22:41 Pulse Rate [Right Brachial] 82 Respiratory Rate 18 Blood Pressure [Right Arm] 140/86 Blood Pressure Mean [Right Arm] 104 Blood Pressure Source [Right Arm] Automatic Cuff Blood Pressure Position [Right Arm] Sitting 02 Sat by Pulse Oximetry 98 Oxygen Delivery Method Room Air Critical Care Time Critical Care Time Attestation: On 05/30/23, the high probability of a clinically significant, sudden or life threatening deterioration of the following system(s) required my full and direct attention, intervention and personal management. The time I documented below is in addition to time spent performing reported procedures but includes the following listed in this critical care notation.
--- NOTE | 2023-05-30 23:02 | HMH.EDGENADL ---
Discharge Plan Disposition Patient Disposition: Home, Self-Care Condition: Good Prescriptions Prescriptions: New methocarbamol 500 mg tablet 1,000 mg PO Q6H PRN (Reason: pain) Qty: 45 0RF lidocaine 5 % adhesive patch,medicated 1 patch topical DAILY PRN (Reason: pain) Qty: 15 0RF Rx Instructions: leave on most painful area for up to 12 hrs No Action peg 3350-electrolytes [Golytely] 236-22.74-6.74 -5.86 gram recon soln 240 ml PO Q10M Qty: 240 0RF Rx Instructions: until fecal effluent is clear-follow mailed instructions Referrals Follow up/Referrals: Everardo Noel MD [Primary Care Provider] - See instructions Activity Restrictions/Add. Instructions Additional Instructions/Restrictions: Recommend activity restriction as much as possible to promote healing. Please take Robaxin as needed. Please use lidocaine patches as needed. Please continue to take Tylenol and ibuprofen. Clinical Impressions Clinical Impression: Strain of left pectoralis muscle Discharge ED Provider: Nidhi Villanueva General Adult HPI General Chief complaint: PAIN Stated complaint: AO 05/27@home injure L Shoulder Time Seen by Provider: 05/30/23 22:55 Mode of Arrival: Family Vehicle Source of Information: Patient Limitations: No Limitations Description of Symptoms (Recalled from ER Triage Doc. by RN): 52 YO MALE PRESENTS WITH CC OF LEFT ANTERIOR CHEST WALL PAIN FOLLOWING LIFTING ON A ZERO-TURN MOWER 2 DAYS AGO. STATES HE KNOWS HOW TO LIFT ON THEM BECAUSE I WORK ON THEM ALL THE TIME, AND I KNOW I DID IT WRONG . HAS ATTEMPTED TO USE HEAT/ICE/MENTHOLATED RUB/OTC MEDS WITHOUT RELIEF. History of Present Illness HPI narrative: 52-year-old female presents with left pectoral pain a couple of days after lifting a lawnmower. He reports that he initially did not have pain but about an hour later noted pain and the next morning had more significant pain. Reports pain is localized to the left pec muscle, it is reproducible on exam with palpation. Patient reports no pain in the shoulder, no pain in the back, neck. Reports no numbness tingling. Has tried Tylenol and ibuprofen and IcyHot at home without relief of pain. Related Data Previous Rx's Medication Instructions Recorded peg 3350-electrolytes 236 240 ml PO Q10M #240 mL 11/03/22 gram-22.74 gram-6.74 gram-5.86 gram solution (Golytely) lidocaine 5 % topical patch 1 patch topical DAILY PRN pain #15 05/30/23 ea methocarbamol 500 mg tablet 1,000 mg PO Q6H PRN pain #45 tabs 05/30/23 Allergies Allergy/AdvReac Type Severity Reaction Status Date / Time alcohol [ALCOHOL] Allergy Unknown I-HIVES Verified 08/28/22 08:43 [facility] Disclaimer: The information contained in this section may have been updated after the patient was seen, as this information can be updated by other users. Medical History (Updated 05/30/23 @ 23:12 by Brayden Esquivel MD) Hx of Spring's palsy Family History (Updated 09/03/22 @ 12:34 by Elen Holliday RN) Other Family history of cancer Family history of myocardial infarction Family history of stroke Social History (Updated 09/03/22 @ 12:34 by Elen Holliday RN) Smoking Status: Current every day smoker tobacco type: cigarettes packs per day: 1 alcohol intake: never substance use type: denies use current occupational status: employed Travel in the last 8 weeks: None housing: house lives independently: Yes marital status: single special jabier needs: No agree to transfusion: No do you feel safe at home: Yes victim of physical abuse: No victim of emotional abuse: No victim of sexual abuse: No would you like helpful sources: No ROS Obtained: Yes All systems reviewed & no additional complaints except as documented Physical Exam General General appearance: alert and in no apparent distress Head Head exam: atraumatic and normocephalic Eye Eye exam: Present normal appearance, PERRL and EOMI
[2023-05-30 23:19] VITALS: BP 128/81; PULSE 80; RESP 16; TEMP 36.7
== END 2023-05-30 23:32 | disposition home or self-care (01) ==
PROVIDERS: Emergency Provider Student in an Organized Health Care Education/Training Program; PCP Emergency Medicine
DX: S29.011A Strain of muscle and tendon of front wall of thorax, initial encounter (principal); F17.210 Nicotine dependence, cigarettes, uncomplicated; X50.0XXA Overexertion from strenuous movement or load, initial encounter
CPT/HCPCS: 99282; 99283

== ENCOUNTER 2024-04-18 18:00 | Outpatient (CLI) | payer OTHER, SELFPAY ==
[2024-04-18 19:26] LABS: Basophils # 0.1 K/mm3 (0-0.2); Basophils % 1.1 % (0.1-2.0); Eosinophils # 0.3 K/mm3 (0.0-0.4); Eosinophils % 3.5 % (0.1-12.0); Hematocrit 47.7 % (42.0-52.0); Hemoglobin 15.7 g/dL (14.1-18.0); Lymphocytes # 2.8 K/mm3 (0.7-4.5); Lymphocytes % 36.9 % (10-50); Mean Corpuscular HGB Conc 32.8 g/dL (31.8-35.4); Mean Corpuscular Hemoglobin 33.1 pg (27.0-31.2); Mean Corpuscular Volume 100.9 fl (80-94); Mean Platelet Volume 8.8 fl (7.4-10.4); Monocytes # 0.6 K/mm3 (0.1-1.0); Monocytes % 7.4 % (1.7-9.3); Neutrophils # 3.9 K/mm3 (1.8-7.8); Platelet Count 304 K/mm3 (142-424); Red Blood Count 4.73 M/mm3 (4.60-6.20); Red Cell Distribution Width 13.7 % (11.5-17.5); White Blood Count 7.6 K/mm3 (4.8-10.8)
[2024-04-18 19:34] LABS: Alanine Aminotransferase 20 U/L (12-78); Albumin Level 4.1 g/dl (3.5-5.0); Albumin/Globulin Ratio 1.5 (1.1-1.8); Alkaline Phosphatase 67 U/L (38-126); Anion Gap 12.7 mEq/L (5-15); Aspartate Amino Transferase 25 U/L (17-59); Bilirubin,Total 0.4 mg/dl (0.2-1.3); Blood Urea Nitrogen 8 mg/dl (9-20); Calcium 9.2 mg/dl (8.4-10.2); Carbon Dioxide 28 mmol/L (22.0-30.0); Chloride 103 mmol/L (98-107); Chol/HDL Ratio 4.9 (1-3.5); Cholesterol 229 mg/dl (140-200); Estimated Glomerular Filt Rate 102 ml/min (>60); GFR (African American) 123 ML/MIN (>60); Globulin 2.8 g/dL (1.3-3.2); Glucose 156 mg/dl (74-100); HDL Cholesterol 47 mg/dl (40-60); Potassium 3.7 mmoL/L (3.5-5.1); Sodium 140 mmol/L (136-145); Total Protein,Serum 6.9 g/dl (6.3-8.2); Triglycerides 138 mg/dl (30-150); VLDL Cholesterol 28 mg/dL (0-40)
[2024-04-18 19:45] LABS: Direct LDL Cholesterol 143.98 mg/dL (100-129)
[2024-04-18 19:49] LABS: 25-OH Vitamin D, Total 38.2 ng/mL (30-100)
[2024-04-18 20:08] LABS: Prostate Specific Ag Screen 1.2 ng/ml (0.0-4.0); Thyroid Stimulating Hormone 2.11 uIU/mL (0.465-4.68)
[2024-04-18 20:27] LABS: Vitamin B12 229 pg/mL (239-931)
[2024-04-24 11:40] LABS: Free Testosterone (Direct) 4.8 pg/mL (7.2-24.0); Testosterone, Total, LC/MS 541.5 ng/dL (264.0-916.0)
== END 2024-04-18 23:59 | disposition home or self-care (01) ==
LOC: LAB.DROPOF 04-19 09:58
PROVIDERS: PCP Nurse Practitioner Family; Visit Provider Nurse Practitioner Family
DX: R53.83 Other fatigue (principal); G51.0 Bell's palsy; Z00.00 Encounter for general adult medical examination without abnormal findings
CPT/HCPCS: 84402; 84403; 80050; 80053; 80061; 82306; 82607; 83036; 84443; 85025; G0103

== ENCOUNTER 2024-05-23 05:40 | Emergency (ER) | payer SELFPAY ==
[2024-05-23 05:42] VITALS: BP 164/89; PULSE 67; RESP 16; TEMP 36.6; O2SAT 98; BMI 24.3
--- NOTE | 2024-05-23 05:44 | HMH.EDGENADL ---
Discharge Plan Disposition Patient Disposition: Home, Self-Care Referrals Follow up/Referrals: Anthony Abdi APRN [Primary Care Provider] - See instructions Activity Restrictions/Add. Instructions Additional Instructions/Restrictions: Please follow-up with your primary care provider. Please return to the emergency department if you develop any new or worsening symptoms or become concerned for your health. Please keep it elevated if you can. Please take Tylenol ibuprofen as needed. Please use ice as needed. Clinical Impressions Clinical Impression: Bursitis Qualifiers: Bursitis location: knee Laterality: right Print Language Print Language: Albanian Discharge ED Provider: Brayden Esquivel General Adult HPI General Chief complaint: PAIN Stated complaint: AO 05/21/241909 right knee pain Time Seen by Provider: 05/23/24 05:43 History of Present Illness HPI narrative: 53-year-old male presents for right knee pain. He reports that he fell at work a couple days ago and it felt better for a little while but it now feels worse again. Denies any other injury. Denies any other pain. Reports he can still bear weight and walk but it hurts more to bend it. Pain is primarily over the kneecap. Related Data Allergies Allergy/AdvReac Type Severity Reaction Status Date / Time alcohol [ALCOHOL] Allergy Unknown I-HIVES Verified 04/18/24 09:25 [facility] Disclaimer: The information contained in this section may have been updated after the patient was seen, as this information can be updated by other users. Medical History Hx of Spring's palsy Family History Other Family history of cancer Family history of myocardial infarction Family history of stroke Social History Smoking Status: Current every day smoker tobacco type: cigarettes packs per day: 1 alcohol intake: never substance use type: denies use current occupational status: employed Travel in the last 8 weeks: None housing: house lives independently: Yes marital status: single special jabier needs: No agree to transfusion: No do you feel safe at home: Yes victim of physical abuse: No victim of emotional abuse: No victim of sexual abuse: No would you like helpful sources: No ROS Obtained: Yes All systems reviewed & no additional complaints except as documented Physical Exam General General appearance: alert and in no apparent distress Head Head exam: atraumatic and normocephalic Eye Eye exam: Present normal appearance, PERRL and EOMI ENT ENT exam: Present normal oropharynx and normal external ear exam Neck Neck exam: Present normal inspection and full ROM Chest Chest inspection: Present normal inspection and symmetric chest wall rise; Absent tenderness Respiratory Respiratory exam: Present normal lung sounds bilaterally; Absent respiratory distress Cardiovascular Cardiovascular exam: Present regular rate and normal rhythm Abdominal Exam Abdominal exam: Present soft; Absent distention, tenderness or guarding Extremities Exam Extremities exam: Present other (Tenderness palpation of the right patella with mild swelling noted around the prepatellar bursa, normal range of motion, normal strength and sensation, no joint instability noted) Back Exam Back exam: Present normal inspection; Absent tenderness Neurological Exam Neurological exam: Present alert and oriented X3; Absent motor sensory deficit Psychiatric Psychiatric exam: Present normal affect and normal mood Skin Skin exam: Present warm, dry and normal color Lymphatic Lymphatic Findings: no adenopathy Medical Decision Making Medical Records Medical records reviewed: Yes I reviewed the patient's medical records. Danny Inquiry Pt receiving controlled substance: No Danny was queried for this patient: No Vital Signs: 05/23/24 05:42 05/23/24 06:50 Temperature 97.8 F 97.8 F Temperature Source Oral Oral Pulse Rate 66 Pulse Rate [Left] 67 Respiratory Rate 16 18 Blood Pressure 121/81 Blood Pressure [Right Arm] 164/89 H Blood Pressure Mean [Right Arm] 114 02 Sat by Pulse Oximetry 98 Oxygen Delivery Method Room Air Room Air Lab Data Lab results reviewed: Yes I reviewed the patient's lab results. Orders (Tests/Meds): ORDERS Category Date Time Status XR knee RT 4V Stat Exams 05/23/24 05:54 Completed Medical Decision Narrative: 53-year-old male presents with right knee pain a couple days after landing on his knee at work. Differential diagnosis includes but not limited to fracture, dislocation, bursitis, internal derangement of the knee. Radiographs of the right knee were obtained and interpreted by me and showed no evidence of acute fracture dislocation or patellar injury. These findings were medicated with patient. He was discharged in stable condition and instructed to follow-up with PCP. Procedures Risk/Benefits of Procedure(s) Were Explained: Yes Critical Care Critical Care Time Critical Care Time: No
--- NOTE | 2024-05-23 05:52 | PC.NURSE ---
Dr. Esquivel at bedside
--- NOTE | 2024-05-23 05:54 | XR_ITS ---
PROCEDURE INFORMATION: Exam: XR Right Knee Exam date and time: 05/23/2024 6:03 AM Age: 53 years old Clinical indication: Pain; Knee; Right TECHNIQUE: Imaging protocol: Radiologic exam of the right knee. Views: 4 or more views. COMPARISON: No relevant prior studies available. FINDINGS: Bones/joints: Mild-moderate degenerative changes of the medial knee compartment with joint space narrowing, subchondral sclerosis and marginal spurring. There are less pronounced degenerative change lateral compartment. There is a small enthesophyte arising from the superior pole of patella. There is some joint space narrowing and subchondral sclerosis along the lateral aspect of the patellofemoral joint. No evidence of fracture, dislocation or malalignment. Soft tissues: Unremarkable. 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
--- NOTE | 2024-05-23 06:13 | PC.NURSE ---
patient to radiology
[2024-05-23 06:50] VITALS: BP 121/81; PULSE 66; RESP 18; TEMP 36.6; O2SAT 98
== END 2024-05-23 06:54 | disposition home or self-care (01) ==
PROVIDERS: Emergency Provider Emergency Medicine; PCP Nurse Practitioner Family
DX: M70.51 Other bursitis of knee, right knee (principal); M25.561 Pain in right knee; F17.210 Nicotine dependence, cigarettes, uncomplicated; W19.XXXA Unspecified fall, initial encounter
CPT/HCPCS: 73564; 99283

== ENCOUNTER 2025-02-27 20:53 | Emergency (ER) | payer OTHER, SELFPAY ==
--- NOTE | 2025-02-27 21:04 | ED_ITS ---
Discharge Plan Disposition Patient Disposition: Home, Self-Care Prescriptions Prescriptions: New methocarbamol 750 mg tablet 1,500 mg PO TID Qty: 90 0RF magnesium oxide 400 mg magnesium tablet 400 mg PO DAILY Qty: 30 0RF Referrals Follow up/Referrals: Anthony Abdi APRN [Primary Care Provider] - See instructions Activity Restrictions/Add. Instructions Additional Instructions/Restrictions: Take Tylenol and ibuprofen as needed for pain. Take Robaxin as needed for muscle relaxation. You may also take magnesium supplement that may help with your leg cramps. Follow-up with primary care doctor. Please return to emergency department with any new, concerning, or worsening symptoms. Clinical Impressions Clinical Impression: Cramp in lower leg Print Language Print Language: American Discharge ED Provider: Nasim Gallegos General Adult HPI <MIS Sheppard - Last Filed: 02/27/25 21:15> General Chief complaint: Extremity Injury, Lower Stated complaint: Right leg from hip to foot cramping all the time Time Seen by Provider: 02/27/25 20:56 History of Present Illness HPI narrative: Patient presents for evaluation of right lower extremity muscle cramps. Patient states that he has been having right lower extremity muscle cramps of significant frequency for 7 days. Patient has a past medical history of previous stroke with no residual deficits currently however he had to spend 6 months and rehab. Patient reports that he is currently on no home meds. Last provider notes I have were from April 2024 and he was diagnosed with Spring's palsy which may be his stroke symptoms. His MRI from the same year did not reveal any areas of acute infarct. In any event patient has had limited interaction with the healthcare system and currently denies chest pain shortness of breath fever chills hemoptysis hematochezia melena nausea vomiting diarrhea focal neurologic deficit or motor or sensory loss. Related Data Previous Rx's ?Medication ?Instructions ?Recorded magnesium oxide 400 mg PO DAILY #30 tabs 02/27/25 methocarbamol 750 mg tablet 1,500 mg (2 x 750 mg) PO TID #90 02/27/25 tabs Allergies Allergy/AdvReac Type Severity Reaction Status Date / Time alcohol (ALCOHOL) Allergy Unknown I-HIVES Verified 04/18/24 09:25 [facility] <MIS Sheppard - Last Filed: 02/27/25 21:15> [facility] Disclaimer: The information contained in this section may have been updated after the patient was seen, as this information can be updated by other users. Medical History Hx of Spring's palsy Family History Other Family history of cancer Family history of myocardial infarction Family history of stroke Social History Smoking Status: Current every day smoker tobacco type: cigarettes packs per day: 1 alcohol intake: never substance use type: denies use current occupational status: employed Travel in the last 8 weeks?: None housing: house lives independently: Yes marital status: single special jabier needs: No agree to transfusion: No do you feel safe at home: Yes victim of physical abuse: No victim of emotional abuse: No victim of sexual abuse: No would you like helpful sources: No Have you lived/traveled outside [place] in past 30 days?: No Contact w/someone who lives/traveled outside [place] past 30 days?: No Exposure to someone with infectious disease in past 14 days?: No Do you have a fever (greater than 100.4 F or 38 C)?: No Have you tested positive for COVID-19?: No Exposed to someone with COVID-19 in past 14 days?: No Do you have a sore throat?: No Do you have a cough?: No Do you have any weakness?: No Do you have any diarrhea?: No Are you experiencing any unusual bleeding?: No Do you have any muscle aches/pain?: No Do you have any abdominal pain?: No Are you experiencing loss of taste or smell?: No Other Medical History Have you received the Flu Vaccine for this season: No Have you received the Pneumonia Vaccine: No <MIS Sheppard - Last Filed: 02/27/25 21:15> ROS Obtained: Yes Systems reviewed as appropriate & no additional complaints except as documented Physical Exam <MIS Sheppard - Last Filed: 02/27/25 21:15> General General appearance: alert and in no apparent distress Respiratory Respiratory exam: Present normal lung sounds bilaterally Cardiovascular Cardiovascular exam: Present regular rate Neurological Exam Neurological exam: Present alert and oriented X3 Medical Decision Making <MIS Sheppard - Last Filed: 02/27/25 21:15> Medical Records Medical records reviewed: Yes I reviewed the patient's medical records. Screening: Per USPSTF and CDC recommendations, given the prevalence of disease in our region, it is our hospital?s policy to screen for HIV and viral Hepatitis for all patients aged 18 and over and those with ongoing risk factors. Danny Inquiry Pt receiving controlled substance: No Vital Signs: 02/27/25 21:28 02/27/25 21:30 02/27/25 21:45 Temperature 98.1 F Temperature Source Oral Pulse Rate 80 79 Pulse Rate [Right] 84 Respiratory Rate 20 Blood Pressure 131/82 117/77 Blood Pressure [Right Arm] 131/80 Blood Pressure Mean [Right Arm] 97 02 Sat by Pulse Oximetry 99 98 97 Oxygen Delivery Method Room Air 02/27/25 22:00 Temperature Temperature Source Pulse Rate 72 Pulse Rate [Right] Respiratory Rate Blood Pressure 126/79 Blood Pressure [Right Arm] Blood Pressure Mean [Right Arm] 02 Sat by Pulse Oximetry 99 Oxygen Delivery Method Lab Data Lab results reviewed: Yes I reviewed the patient's lab results. Lab Results 02/27/25 21:47: WBC 9.7, RBC 4.44 L, Hgb 14.4, Hct 42.2, MCV 95.0 H, MCH 32.4 H, MCHC 34.1, RDW 13.1, Plt Count 315, MPV 9.0, Neut % (Auto) 56.9, Lymph % (Auto) 32.4, [place] % (Auto) 8.0, Eos % (Auto) 2.1, Baso % (Auto) 0.5, Neut # (Auto) 5.5, Lymph # (Auto) 3.1, [place] # (Auto) 0.8, Eos # (Auto) 0.2, Baso # (Auto) 0.1, Sodium 137, Potassium 4.0, Chloride 105, Carbon Dioxide 30, Anion Gap 6.0, BUN 8 L, Creatinine 0.70, Estimated Creat Clear 127, Estimated GFR 118, Est GFR ( Amer) 143, Glucose 163 H, Calcium 9.4, Magnesium 1.9, Total Bilirubin 0.4, AST 21, ALT 14, Alkaline Phosphatase 57, Total Creatine Kinase 73, Total Protein 7.1, Albumin 4.2, Globulin 2.9, Albumin/Globulin Ratio 1.4 02/27/25 21:47 02/27/25 21:47 Orders (Tests/Meds): ED MEDICATIONS Discontinued Medications Generic Name Dose Route Start Last Admin Trade Name Pili PRN Reason Stop Dose Admin Acetaminophen 1,000 mg 02/27/25 20:59 02/27/25 21:58 Acetaminophen 500mg Tab PO 02/27/25 21:00 Not Given ONCE ONE Ketorolac Tromethamine 15 mg 02/27/25 20:59 02/27/25 21:58 Ketorolac 30mg/Ml Vial IV 02/27/25 21:00 Not Given ONCE ONE Methocarbamol 1,500 mg 02/27/25 21:39 02/27/25 21:58 Methocarbamol 500mg Tablet PO 02/27/25 21:40 Not Given ONCE ONE ORDERS Category Date Time Status CBC w/Auto Diff [Complete Blood Count Auto Diff] Stat Lab 02/27/25 21:47 Completed CK [Creatine Kinase] Stat Lab 02/27/25 21:47 Completed CMP [Comprehensive Metabolic Panel] Stat Lab 02/27/25 21:47 Completed Magnesium Stat Lab 02/27/25 21:47 Completed Medical Decision Narrative: In summary patient is a 54-year-old male who presents to the emergency department for evaluation of right lower extremity muscle cramps for 7 days. Patient is hemodynamically stable upon arrival, afebrile. Physical exam is remarkable for no focal neurologic deficits. Patient moves all 4 extremities has normal gait and station NIH stroke score 0. He is awake alert and oriented person place circumstance [place] Coma Score 15 cranials 2 through 12 are intact grossly to exam. Patient has full range of motion of all 4 extremities without spasm or deficit currently. He is neurovascularly intact distally in all 4 extremities.. Differential diagnosis includes electrolyte abnormality versus neurologic abnormality versus kidney abnormality etc. Initial workup will be conducted with the hematologic labs. Initial interventions include Tylenol Robaxin and Toradol. Initial workup ordered and pending at the time of handoff to Dr. Gallegos at 2200 hrs. <Nasim Gallegos MD - Last Filed: 02/27/25 22:19> Vital Signs: 02/27/25 21:28 02/27/25 21:30 02/27/25 21:45 Temperature 98.1 F Temperature Source Oral Pulse Rate 80 79 Pulse Rate [Right] 84 Respiratory Rate 20 Blood Pressure 131/82 117/77 Blood Pressure [Right Arm] 131/80 Blood Pressure Mean [Right Arm] 97 02 Sat by Pulse Oximetry 99 98 97 Oxygen Delivery Method Room Air 02/27/25 22:00 Temperature Temperature Source Pulse Rate 72 Pulse Rate [Right] Respiratory Rate Blood Pressure 126/79 Blood Pressure [Right Arm] Blood Pressure Mean [Right Arm] 02 Sat by Pulse Oximetry 99 Oxygen Delivery Method Lab Data Lab Results 02/27/25 21:47: WBC 9.7, RBC 4.44 L, Hgb 14.4, Hct 42.2, MCV 95.0 H, MCH 32.4 H, MCHC 34.1, RDW 13.1, Plt Count 315, MPV 9.0, Neut % (Auto) 56.9, Lymph % (Auto) 32.4, [place] % (Auto) 8.0, Eos % (Auto) 2.1, Baso % (Auto) 0.5, Neut # (Auto) 5.5, Lymph # (Auto) 3.1, [place] # (Auto) 0.8, Eos # (Auto) 0.2, Baso # (Auto) 0.1, Sodium 137, Potassium 4.0, Chloride 105, Carbon Dioxide 30, Anion Gap 6.0, BUN 8 L, Creatinine 0.70, Estimated Creat Clear 127, Estimated GFR 118, Est GFR ( Amer) 143, Glucose 163 H, Calcium 9.4, Magnesium 1.9, Total Bilirubin 0.4, AST 21, ALT 14, Alkaline Phosphatase 57, Total Creatine Kinase 73, Total Protein 7.1, Albumin 4.2, Globulin 2.9, Albumin/Globulin Ratio 1.4 Orders (Tests/Meds): ED MEDICATIONS Discontinued Medications Generic Name Dose Route Start Last Admin Trade Name Freq PRN Reason Stop Dose Admin Acetaminophen 1,000 mg 02/27/25 20:59 02/27/25 21:58 Acetaminophen 500mg Tab PO 02/27/25 21:00 Not Given ONCE ONE Ketorolac Tromethamine 15 mg 02/27/25 20:59 02/27/25 21:58 Ketorolac 30mg/Ml Vial IV 02/27/25 21:00 Not Given ONCE ONE Methocarbamol 1,500 mg 02/27/25 21:39 02/27/25 21:58 Methocarbamol 500mg Tablet PO 02/27/25 21:40 Not Given ONCE ONE ORDERS Category Date Time Status CBC w/Auto Diff [Complete Blood Count Auto Diff] Stat Lab 02/27/25 21:47 Completed CK [Creatine Kinase] Stat Lab 02/27/25 21:47 Completed CMP [Comprehensive Metabolic Panel] Stat Lab 02/27/25 21:47 Completed Magnesium Stat Lab 02/27/25 21:47 Completed Medical Decision Narrative: In summary patient is a 54-year-old male who presents to the emergency department for evaluation of right lower extremity muscle cramps for 7 days. Patient is hemodynamically stable upon arrival, afebrile. Physical exam is remarkable for no focal neurologic deficits. Patient moves all 4 extremities has normal gait and station NIH stroke score 0. He is awake alert and oriented person place circumstance [place] Coma Score 15 cranials 2 through 12 are intact grossly to exam. Patient has full range of motion of all 4 extremities without spasm or deficit currently. He is neurovascularly intact distally in all 4 extremities.. Differential diagnosis includes electrolyte abnormality versus neurologic abnormality versus kidney abnormality etc. Initial workup will be conducted with the hematologic labs. Initial interventions include Tylenol Robaxin and Toradol. Initial workup ordered and pending at the time of handoff to Dr. Gallegos at 2200 hrs. ALDO attestation I was consulted by the ALDO, and we discussed the complexity of problems being addressed. I approved the treatment and management plan for this patient's care in the emergency department, thus performing a substantial portion of the medical decision making. I assumed care of this patient as described above at 2200. I went and evaluated/examined the patient at bedside. Tender to the right calf however no edema or limb swelling. Also complaining of muscle spasms in the right side of his neck. Laboratory workup revealed unremarkable CBC and no electrolyte abnormalities that would explain patient's symptoms. Normal CK. Patient was appropriate for discharge at this time. Counseled on treatment with Tylenol and ibuprofen at home. Prescribed Robaxin and magnesium supplement. He is to follow-up with primary care doctor. He had declined the medications that provider Mellisa had offered him at presentation due to concern that it would make him sleepy before he drove home. Nasim Gallegos MD Critical Care <MIS Sheppard - Last Filed: 02/27/25 21:15> Critical Care Time Critical Care Time: No
[2025-02-27 21:28] VITALS: BP 131/80; PULSE 84; RESP 20; TEMP 36.7; O2SAT 99; BMI 23.2
[2025-02-27 21:30] VITALS: BP 131/82; PULSE 80; O2SAT 98
[2025-02-27 21:45] VITALS: BP 117/77; PULSE 79; O2SAT 97
[2025-02-27 21:53] LABS: Basophils # 0.1 K/mm3 (0-0.2); Basophils % 0.5 % (0.1-2.0); Eosinophils # 0.2 Kmm3 (0.0-0.4); Eosinophils % 2.1 % (0.1-12.0); Hematocrit 42.2 % (42.0-52.0); Hemoglobin 14.4 g/dL (14.1-18.0); Lymphocytes # 3.1 K/mm3 (0.7-4.5); Lymphocytes % 32.4 % (10-50); Mean Corpuscular HGB Conc 34.1 g/dL (31.8-35.4); Mean Corpuscular Hemoglobin 32.4 pg (27.0-31.2); Monocytes # 0.8 K/mm3 (0.1-1.0); Neutrophils # 5.5 K/mm3 (1.8-7.8); Neutrophils % 56.9 % (37.0-80.0); Nucleated Red Blood Cells # 0 10^3/uL; Nucleated Red Blood Cells % 0 %; Platelet Count 315 K/mm3 (142-424); Red Blood Count 4.44 M/mm3 (4.60-6.20); Red Cell Distribution Width 13.1 % (11.5-17.5); Red Cell Distribution Width-SD 45.8 fL; White Blood Count 9.7 K/mm3 (4.8-10.8)
[2025-02-27 22:00] VITALS: BP 126/79; PULSE 72; O2SAT 99
[2025-02-27 22:04] LABS: Albumin Level 4.2 g/dl (3.5-5.0); Chloride 105 mmol/L (98-107); Sodium 137 mmol/L (136-145)
[2025-02-27 22:07] LABS: Alanine Aminotransferase 14 U/L (12-78); Albumin/Globulin Ratio 1.4 (1.1-1.8); Alkaline Phosphatase 57 U/L (38-126); Aspartate Amino Transferase 21 U/L (17-59); Bilirubin,Total 0.4 mg/dl (0.2-1.3); Blood Urea Nitrogen 8 mg/dl (9-20); Calcium 9.4 mg/dl (8.4-10.2); Carbon Dioxide 30 mmol/L (22.0-30.0); Creatine Kinase 73 U/L (55-170); Creatinine Clearance Estimated 127 mL/min (50-200); Estimated Glomerular Filt Rate 118 ml/min (>60); GFR (African American) 143 ML/MIN (>60); Globulin 2.9 g/dL (1.3-3.2); Glucose 163 mg/dl (74-100); Total Protein,Serum 7.1 g/dl (6.3-8.2)
[2025-02-27 22:08] LABS: Magnesium 1.9 mg/dl (1.6-2.3)
[2025-02-27 22:28] VITALS: BP 121/86; PULSE 72; RESP 20; TEMP 36.6; O2SAT 98
== END 2025-02-27 22:42 | disposition home or self-care (01) ==
PROVIDERS: Physician Assistant; Emergency Provider Student in an Organized Health Care Education/Training Program; PCP Nurse Practitioner Family
DX: M62.831 Muscle spasm of calf (principal)
CPT/HCPCS: 80053; 82550; 83735; 85025; 96374; 99284; J1885